=== PATIENT | male | born 1995 | race Caucasian/White ===

== ENCOUNTER 2018-01-31 09:35 | Emergency (ER) | payer OTHER ==
--- NOTE | 2018-01-31 10:49 | EDPHY ---
H & P Time Seen by Provider: 01/31/18 10:49 HPI/ROS: Chief complaint. Abdominal pain HPI. 22-year-old male presents emergency department with low abdominal pain. Symptoms began yesterday morning. He had been sober for many months and then went out drinking the night before. He has sense of pressure and distension to the low abdomen on both sides. He describes as burning. He notes he has had blood in his urine the past few months. Nausea but no vomiting or diarrhea. No previous abdominal surgery. No urinary symptoms currently. Patient is concerned about kidneys and liver from drinking. ROS 10 systems were reviewed and negative with the exception of the elements mentioned in the history of present illness Past Medical/Surgical History: Healthy Social History: Single, daily smoker, last alcohol 2 days ago Smoking Status: Current some day smoker Physical Exam: General Appearance: Alert slightly anxious well-developed male vital signs stable mild distress Eyes: Pupils equal and round no pallor or injection. ENT, Mouth: Mucous membranes are moist. Respiratory: There are no retractions, lungs are clear to auscultation. Cardiovascular: Regular rate and rhythm. Gastrointestinal: Abdomen is soft minimally tender to both sides of low abdomen. No particular tenderness to McBurney's point or right lower quadrant. Normal bowel sounds. No masses Neurological: Awake and alert, sensory and motor exams grossly normal. Skin: Warm and dry, no rashes. Musculoskeletal: Neck is supple nontender. Extremities symmetrical, full range of motion. Psychiatric: Patient is oriented X 3, there is no agitation. Constitutional: Initial Vital Signs Temperature (C) 36.7 C 01/31/18 10:10 Heart Rate 74 01/31/18 10:10 Respiratory Rate 16 01/31/18 10:10 Blood Pressure 159/108 H 01/31/18 10:10 O2 Sat (%) 98 01/31/18 10:10 O2 Delivery Mode Room Air Allergies/Adverse Reactions: No Known Allergies Allergy (Unverified 01/31/18 10:10) Home Medications: Medication Instructions Recorded NK [No Known Home Meds] 01/31/18 Medical Decision Making Procedures: IV normal saline ED Course/Re-evaluation: Re-evaluation 11:35 a.m.. Patient is stable. He and I discussed laboratory evaluation, treatment plan including criteria for return importance of follow- up further evaluation. He expresses understanding and agreement His abdomen is reexamined by me and he has no right lower quadrant tenderness Differential Diagnosis: I considered gastritis, abnormal electrolytes, LFTs. I considered urinary tract infection. I considered appendicitis. - Data Points Laboratory Results: Laboratory Results 01/31/18 11:00 01/31/18 11:00 01/31/18 01/31/18 01/31/18 11:00 11:00 10:15 WBC 8.12 10^3/uL 10^3/uL (3.80-9.50) RBC 5.23 10^6/uL 10^6/uL (4.40-6.38) Hgb 15.5 g/dL g/dL (13.7-17.5) Hct 43.8 % % (40.0-51.0) MCV 83.7 fL fL (81.5-99.8) MCH 29.6 pg pg (27.9-34.1) MCHC 35.4 g/dL g/dL (32.4-36.7) RDW 11.9 % % (11.5-15.2) Plt Count 244 10^3/uL 10^3/uL (150-400) MPV 9.7 fL fL (8.7-11.7) Neut % (Auto) 56.5 % % (39.3-74.2) Lymph % (Auto) 29.8 % % (15.0-45.0) [place] % (Auto) 8.0 % % (4.5-13.0) Eos % (Auto) 5.0 % % (0.6-7.6) Baso % (Auto) 0.6 % % (0.3-1.7) Nucleat RBC Rel Count 0.0 % % (0.0-0.2) Absolute Neuts (auto) 4.58 10^3/uL 10^3/uL (1.70-6.50) Absolute Lymphs (auto) 2.42 10^3/uL 10^3/uL (1.00-3.00) Absolute Monos (auto) 0.65 10^3/uL 10^3/uL (0.30-0.80) Absolute Eos (auto) 0.41 10^3/uL H 10^3/uL (0.03-0.40) Absolute Basos (auto) 0.05 10^3/uL 10^3/uL (0.02-0.10) Absolute Nucleated RBC 0.00 10^3/uL 10^3/uL (0-0.01) Immature Gran % 0.1 % % (0.0-1.1) Immature Gran # 0.01 10^3/uL 10^3/uL (0.00-0.10) Sodium 138 mEq/L mEq/L (135-145) Potassium 4.1 mEq/L mEq/L (3.3-5.0) Chloride 103 mEq/L mEq/L (97-110) Carbon Dioxide 26 mEq/l mEq/l (22-31) Anion Gap 9 mEq/L mEq/L (6-14) BUN 10 mg/dL mg/dL (7-23) Creatinine 0.8 mg/dL mg/dL (0.7-1.3) Estimated GFR > 60 Glucose 108 mg/dL H mg/dL (70-100) Calcium 9.8 mg/dL mg/dL (8.5-10.4) Total Bilirubin 0.9 mg/dL mg/dL (0.1-1.4) Conjugated Bilirubin 0.2 mg/dL mg/dL (0.0-0.5) Unconjugated Bilirubin 0.7 mg/dL mg/dL (0.0-1.1) AST 21 IU/L IU/L (17-59) ALT 23 IU/L IU/L (21-72) Alkaline Phosphatase 107 IU/L IU/L (38-126) Total Protein 7.3 g/dL g/dL (6.3-8.2) Albumin 4.6 g/dL g/dL (3.5-5.0) Lipase 54 IU/L IU/L (23-300) Urine Color COLORLESS Urine Appearance CLEAR Urine pH 6.0 (5.0-7.5) Ur Specific [place] 1.002 (1.002-1.030) Urine Protein NEGATIVE (NEGATIVE) Urine Ketones NEGATIVE (NEGATIVE) Urine Blood NEGATIVE (NEGATIVE) Urine Nitrate NEGATIVE (NEGATIVE) Urine Bilirubin NEGATIVE (NEGATIVE) Urine Urobilinogen NEGATIVE EU EU (0.2-1.0) Ur Leukocyte Esterase NEGATIVE (NEGATIVE) Urine Glucose NEGATIVE (NEGATIVE) Medications Given: Discontinued Medications Sodium Chloride (Ns) 1,000 mls @ 0 mls/hr IV EDNOW ONE; Wide Open PRN Reason: Protocol Stop: 01/31/18 10:56 Last Admin: 01/31/18 11:10 Dose: 1,000 mls Departure - Departure Disposition: Home, Routine, Self-Care Clinical Impression: Abdominal pain Condition: Good Instructions: Acute Abdominal Pain (ED) Additional Instructions: Drink plenty of fluids and stay hydrated. Work on improving your diet Return for worsening abdominal pain, fever, vomiting Recheck in 2 days if not improving Referrals: NONE *PRIMARY CARE P,. [Primary Care Provider] - As per Instructions Ginette Urrutia MD [Medical Doctor] - 2-3 days, if not improved
[2018-01-31] MEDS ORDERED: NS 1,000 ML IV ONE (10:55)
[2018-01-31 11:09] LABS: PLATELET COUNT 244 10^3/uL (150-400)
[2018-01-31 12:15] VITALS: BP 138/74
== END 2018-01-31 12:13 | disposition home or self-care (01) ==
DX: F17.200 Nicotine dependence, unspecified, uncomplicated (principal); R94.5 Abnormal results of liver function studies; E86.9 Volume depletion, unspecified